=== PATIENT | male | born 1975 | race Caucasian/White ===

== ENCOUNTER 2018-01-13 13:33 | Emergency (ER) | payer OTHER ==
[~2018-01-13] VITALS: Ht 167.6 cm; Wt 73.0 kg
[2018-01-13] MEDS ORDERED: Prinivil5 MG PO (14:31)
[2018-01-13] MEDS ORDERED: BUPR100 PO (14:31)
== END 2018-01-13 15:29 | disposition home or self-care (01) ==
LOC: ER 13:33
DX: G43.909 Migraine, unspecified, not intractable, without status migrainosus (principal); F17.200 Nicotine dependence, unspecified, uncomplicated
CPT/HCPCS: 64405; 96372; 99282-25; J0780; J1100; J1885; Q0163